=== PATIENT | male | born 1980 | race Caucasian/White ===

== ENCOUNTER 2016-08-15 00:17 | Emergency (ER) | payer OTHER ==
[~2016-08-15] VITALS: Ht 172.7 cm; Wt 91.4 kg
[~2016-08-15 00:17] MED LIST: KEFLEX500 MG PO; LEVAQUIN500 MG PO; ROBITUSSIN DM118 ML PO; TESSALON PERLE100 MG PO; doxepin; lamictal
[2016-08-15 01:09] LABS: HEMATOCRIT 43.6 % (38.0-50.0); MCHC 34.2 G/DL (30.0-36.0); MCV 81.8 FL (86-99); MEAN PLAT.VOLUME 11.4 uM^3 (9.0-12.4); PLATELET COUNT 237 K/uL (156-360); RBC DIS.WIDTH-CV 13.6 % (11.8-14.6); RBC DIS.WIDTH-SD 39.9 % (39-53); RED BLOOD COUNT 5.33 M/uL (4.00-5.50); WHITE BLOOD COUNT 11.8 K/uL (4.1-10.2)
[2016-08-15 01:20] LABS: CHLORIDE 98 mEq/L (99-109); POTASSIUM 3.6 mEq/L (3.7-5.4); SODIUM 135 mEq/L (136-147)
[2016-08-15 01:22] LABS: GLUCOSE 177 mg/dL (70-99)
[2016-08-15 01:23] LABS: ANION GAP 11 MEQ/L (2-14)
[2016-08-15 01:26] LABS: GFR ESTIMATE (CALCULATED) > 59 mL/min/; UREA NITROGEN (BUN) 8 mg/dL (9-23)
[2016-08-15 01:29] LABS: TROP-I INTERPRETATION NEGATIVE; TROPONIN-I < 0.01 ng/mL (0.0-0.30)
[2016-08-15] MEDS ORDERED: PREDNISONE50 MG PO (01:31)
[2016-08-15] MEDS ORDERED: VENTOLIN HFA18 GM IH (01:31)
[2016-08-15] MEDS ORDERED: AZITHROMYCIN250 MG PO (01:31)
[2016-08-15 02:21] LABS: D-DIMER ELISA 0.25 mg/L FEU (< 0.57)
[2016-08-15 02:36] LABS: INFLUENZA A VIRAL ANTIGEN NEGATIVE; INFLUENZA B VIRAL ANTIGEN NEGATIVE
[2016-08-15 03:40] VITALS: BP 148/78
== END 2016-08-15 03:22 | disposition home or self-care (01) ==
LOC: EME 00:17
PROVIDERS: Emergency Medicine
DX: J20.9 Acute bronchitis, unspecified (principal); E86.0 Dehydration; F17.200 Nicotine dependence, unspecified, uncomplicated
CPT/HCPCS: 71020; 80048; 84484; 85027; 85379; 87502; 93005; 94640; J1885; J7030; J7512

== ENCOUNTER 2017-02-05 09:49 | Emergency (ER) | payer OTHER ==
[~2017-02-05] VITALS: Ht 172.7 cm; Wt 91.9 kg
[~2017-02-05 09:49] MED LIST changes: +AZITHROMYCIN250 MG PO; +PREDNISONE50 MG PO; +VENTOLIN HFA18 GM IH
[2017-02-05 11:47] LABS: BASOPHIL COUNT 0.2 K/uL (0-0.1); EOSINOPHIL (%) 1.8 % (0-5); EOSINOPHIL COUNT 0.3 K/uL (0-0.3); HEMATOCRIT 49.6 % (38.0-50.0); IMMATURE GRANULOCYTE (%) 0.5 % (0.0-0.7); IMMATURE GRANULOCYTE COUNT 0.1 K/uL; INSTRUMENT ABS NEUTROPHIL CT 13.2 K/uL; LYMPHOCYTE COUNT 3.2 K/uL (1.0-2.8); MCH 28.1 PG (29.0-34.0); MCHC 32.9 G/DL (30.0-36.0); MCV 85.4 FL (86-99); MEAN PLAT.VOLUME 11.2 uM^3 (9.0-12.4); MONOCYTE (%) 9.4 % (3-12); MONOCYTE COUNT 1.8 K/uL (0-0.8); NEUTROPHIL (%) 70.5 % (45-76); NEUTROPHIL COUNT 13.2 K/uL (1.8-6.4); PLATELET COUNT 262 K/uL (156-360); RBC DIS.WIDTH-CV 13.3 % (11.8-14.6); RBC DIS.WIDTH-SD 41.1 % (39-53); RED BLOOD COUNT 5.81 M/uL (4.00-5.50); WHITE BLOOD COUNT 18.7 K/uL (4.1-10.2)
[2017-02-05 11:55] LABS: CHLORIDE 98 mEq/L (99-109); SODIUM 134 mEq/L (136-147)
[2017-02-05 11:56] LABS: GLUCOSE 217 mg/dL (70-99)
[2017-02-05 11:58] LABS: ANION GAP 12 MEQ/L (2-14)
[2017-02-05 12:00] LABS: GFR ESTIMATE (CALCULATED) > 59 mL/min/
[2017-02-05 12:01] LABS: UREA NITROGEN (BUN) 10 mg/dL (9-23)
[2017-02-05] MEDS ORDERED: NAPROSYN500 MG PO (16:53)
[2017-02-05] MEDS ORDERED: VIBRAMYCIN100 MG PO (16:53)
[2017-02-05] MEDS ORDERED: NORCO 7.5/321 TABLET PO (17:00)
[2017-02-05 17:08] VITALS: BP 130/74
== END 2017-02-05 17:09 | disposition home or self-care (01) ==
LOC: EME 09:49
PROVIDERS: Physician Assistant
PROC: 0J9C0ZZ Drainage of Pelvic Region Subcutaneous Tissue and Fascia, Open Approach (ICD-10-PCS; principal; 2017-02-05)
DX: L02.214 Cutaneous abscess of groin (principal); L03.314 Cellulitis of groin; R73.9 Hyperglycemia, unspecified; F17.200 Nicotine dependence, unspecified, uncomplicated
CPT/HCPCS: 72193; 80048; 83605; 85025; 87040; 87070; 87075; 87076; 87186; 87205; 99281; 99285; J1885; J3370; J7030